=== PATIENT | female | born 1995 | race Caucasian/White ===

== ENCOUNTER 2017-01-12 03:15 | Emergency (ER) | payer BC, OTHER ==
[~2017-01-12] VITALS: Ht 175.3 cm; Wt 63.0 kg
--- NOTE | 2017-01-12 03:18 | ED.ADGEN ---
Past History Past Medical History: No Pertinent History Past Surgical History: No Surgical History Alcohol Use: None Drug Use: None Adult General Chief Complaint Chief Complaint Right hand injury HPI HPI Patient is a 22 year old and female who presents with hand and wrist injury. She slipped and fell over her flip flop landing on her right hand prior to arrival. She states it hurts to the medial aspect over the fourth and fifth medical carpal and her carpal bone. She denies any injury of her elbow. Review of Systems Review of Systems Constitutional: Denies fever or chills [] Eyes: Denies change in visual acuity, redness, or eye pain [] HENT: Denies nasal congestion or sore throat [] Respiratory: Denies cough or shortness of breath [] Cardiovascular: No additional information not addressed in HPI [] GI: Denies abdominal pain, nausea, vomiting, bloody stools or diarrhea [] : Denies dysuria or hematuria [] Musculoskeletal: Denies back pain, positive for right hand and wrist pain Integument: Denies rash or skin lesions [] Neurologic: Denies headache, focal weakness or sensory changes [] Endocrine: Denies polyuria or polydipsia [] Current Medications Current Medications Current Medications Medications (Trade) Dose Ordered Sig/Tee Start Time Stop Time Status Last Admin Dose Admin Acetaminophen/ Hydrocodone Bitart (Lortab 5/325) 1 tab 1X ONCE 01/12/17 03:30 01/12/17 03:31 UNV Lidocaine/Sodium Bicarbonate (Buffered Lidocaine 1%) 3 ml 1X ONCE 01/12/17 04:15 01/12/17 04:16 UNV Allergies Allergies Allergies Coded Allergies Type Severity Reaction Last Updated Verified No Known Drug Allergies 01/12/17 No Physical Exam Physical Exam Constitutional: Well developed, well nourished, no acute distress, non-toxic appearance. [] HENT: Normocephalic, atraumatic, bilateral external ears normal, oropharynx moist, no oral exudates, nose normal. [] Eyes: PERRLA, EOMI, conjunctiva normal, no discharge. [] Neck: Normal range of motion, no tenderness, supple, no stridor. [] Cardiovascular:Heart rate regular rhythm, no murmur [] Lungs & Thorax: Bilateral breath sounds clear to auscultation [] Abdomen: Bowel sounds normal, soft, no tenderness, no masses, no pulsatile masses. [] Skin: Warm, dry, no erythema, no rash. [] Back: No tenderness, no CVA tenderness. [] Extremities: Tender palpation with swelling over the fifth metacarpal of her right hand in addition to mild tenderness in her wrist, sensation intact to light touch over median ulnar radial nerve distributions with motor intact, no cyanosis, no clubbing, ROM intact, no edema. [] Neurologic: Alert and oriented X 3, normal motor function, normal sensory function, no focal deficits noted. [] Psychologic: Affect normal, judgement normal, mood normal. [] Current Patient Data Vital Signs Vital Signs Date Time Temp Pulse Resp B/P (MAP) Pulse Ox O2 Delivery O2 Flow Rate FiO2 01/12/17 03:33 98.1 80 20 97 Room Air EKG EKG [] Radiology/Procedures Radiology/Procedures Views of the right hand shows a fifth metacarpal fracture that is angulated and slightly displaced, no other bony abnormalities, no warm bodies or soft tissue abnormalities noted, 3 views of the right wrist did not show any bony abnormalities of the wrist, forearm bodies, soft tissue abnormalities, as interpreted by me. Course & Med Decision Making Course & Med Decision Making Pertinent Labs and Imaging studies reviewed. (See chart for details) Her fifth metacarpal fracture was reduced with hematoma block, it was placed in a ulnar gutter, patient's a follow-up with orthopedic surgery. Return precautions given for numbness tingling weakness or finger showing blue or other concerns. She is agreeable to the plan and being discharged with [facility] at this time. Post reduction films showed a slight improvement in angulation of the fracture. Splint check after the splint was applied showed normal cap refill went motion and sensation in her fingers intact. Final Impression Final Impression Fifth metacarpal fracture of the right hand Problems: Dragon Disclaimer Dragon Disclaimer This electronic medical record was generated, in whole or in part, using a voice recognition dictation system. DAVID GOMES MD Jan 12, 2017 03:18
[2017-01-12] MEDS ORDERED: HYDROcodone/APAP 5/325MG 1 TAB TABLET PO ONE (03:30)
[2017-01-12] MEDS ORDERED: antidepressant (03:32)
[2017-01-12 03:33] VITALS: BP 116/78
[2017-01-12] MEDS ORDERED: LIDOCAINE WITH 8.4% SOD BICARB 3 ML DISP.SYRIN. IJ ONE ×2 (04:04→04:15)
[2017-01-12] MEDS ORDERED: HYDR-971 PO (04:23)
--- NOTE | 2017-01-12 07:33 | RAD ---
Indication: Post reduction of the right hand. Time of exam 0423 hours. Correlation is made with prior radiograph from earlier the same day. There has been placement of a cast which overlies the mid shaft fifth metacarpal fracture. There has been improvement in the degree of angulation. Mild volar angulation of the distal fracture fragment is seen. No displacement is identified. Impression: Placement of a cast over the fifth metacarpal fracture which shows some improvement in angulation since earlier the same morning.
--- NOTE | 2017-01-12 07:34 | RAD ---
Indication: Fall and pain to the right hand and wrist. Time of exam 0354 hours. 3 views of the right wrist demonstrate the distal radius and ulna to be intact. The carpus is intact. There is a fracture through the midshaft of the fifth metacarpal. There is volar angulation of the distal fracture fragment. No displacement is seen. Impression: Angulated mid shaft fifth metacarpal fracture. No wrist fracture is identified.
--- NOTE | 2017-01-12 07:35 | RAD ---
Indication: Trauma to the right hand. Time of exam 0353 hours. 3 views of the right hand demonstrate an acute fracture through the midshaft of the fifth metacarpal. There is volar angulation of the distal fracture fragment. No displacement is seen. Remaining metacarpals are intact. The phalanges are intact. The carpus is unremarkable. Impression: Angulated mid shaft fifth metacarpal fracture.
== END 2017-01-12 04:35 | disposition home or self-care (01) ==
LOC: ER 03:15
DX: S62.306A Unspecified fracture of fifth metacarpal bone, right hand, initial encounter for closed fracture (principal); W01.0XXA Fall on same level from slipping, tripping and stumbling without subsequent striking against object, initial encounter; Y93.89 Activity, other specified; Y92.89 Other specified places as the place of occurrence of the external cause; Y99.8 Other external cause status
CPT/HCPCS: 26605; 26770; 73110; 73130; 99284-25

== ENCOUNTER → 2017-02-21 | Outpatient (CLI) | payer BC, OTHER ==
[~2017-02-21] MED LIST: HYDR-971 PO; antidepressant
--- NOTE | 2017-02-21 14:15 | RAD ---
Renal ultrasound, 02/21/2017: History: Recurrent UTIs, flank pain The right kidney measures 10.9 cm in length while the left kidney measures 11.2 cm. There is a mildly prominent extrarenal pelvis on the right. There is no evidence of hydronephrosis on either side. No renal mass is evident. Limited views of urinary bladder show no abnormality. There is a small volume of post voiding residual urine in the bladder estimated at 29 cc. IMPRESSION: No significant renal abnormality is detected.
== END | disposition home or self-care (01) ==
LOC: US 09:56
PROVIDERS: ATTEND Physician Assistant Medical
DX: N39.0 Urinary tract infection, site not specified (principal)
CPT/HCPCS: 76770

== ENCOUNTER 2017-03-28 12:47 | Emergency (ER) | payer BC, OTHER ==
[~2017-03-28] VITALS: Ht 175.3 cm; Wt 68.0 kg
[2017-03-28 12:56] VITALS: BP 114/71
[2017-03-28] MEDS ORDERED: HYDROcodone/APAP 5/325MG 1 TAB TABLET PO ONE (13:15)
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
[2017-03-28] MEDS ORDERED: NAPR275T59 PO (13:22)
--- NOTE | 2017-03-28 14:14 | RAD ---
Right hand, 3 views, 03/28/2017: History: Injury Comparison is made to a study from 01/12/2017. Callus has developed at the site of the previous fifth metacarpal fracture. The fracture line is still visible. This probably represents incomplete healing, although a refracture cannot be entirely excluded. There is mild persistent volar angulation of the distal fracture fragment. No additional fracture or dislocation is identified. IMPRESSION: Incompletely healed, mildly angulated fifth metacarpal fracture.
== END 2017-03-28 13:29 | disposition home or self-care (01) ==
LOC: ER 12:47
DX: S62.326A Displaced fracture of shaft of fifth metacarpal bone, right hand, initial encounter for closed fracture (principal); S60.221A Contusion of right hand, initial encounter; W22.01XA Walked into wall, initial encounter; Y93.89 Activity, other specified; Y99.8 Other external cause status; Y92.89 Other specified places as the place of occurrence of the external cause
CPT/HCPCS: 73130; 99284

== ENCOUNTER → 2017-08-09 | Outpatient (CLI) | payer BC, OTHER ==
[~2017-08-09] MED LIST changes: +NAPR275T59 PO
[2017-08-09 13:22] LABS: BASO # 0.1 x10^3/uL (0.0-0.2); BASO % 1 % (0-3); EOS # 0.1 x10^3/uL (0.0-0.7); EOS % 2 % (0-3); LYMPH # 1.9 x10^3/uL (1.0-4.8); LYMPH % 28 % (24-48); MEAN CORPUSCULAR HEMOGLOBIN 18 pg (25-35); MEAN CORPUSCULAR HGB CONC 30 g/dL (31-37); MEAN CORPUSCULAR VOLUME 60 fL (79-100); MONO # 0.7 x10^3/uL (0.0-1.1); MONO % 10 % (0-9); NEUT % 59 % (31-73); PLATELET COUNT 329 x10^3/uL (140-400); RED BLOOD COUNT 3.29 x10^6/uL (3.50-5.40); WHITE BLOOD COUNT 6.8 x10^3/uL (4.0-11.0)
[2017-08-09 13:29] LABS: HEMATOCRIT 19.7 % (36.0-47.0); HEMOGLOBIN 5.8 g/dL (12.0-15.5)
[2017-08-09 14:30] LABS: ANISOCYTOSIS SLIGHT; HYPOCHROMIA MARKED; MICROCYTOSIS MARKED; PLT ESTIMATE ADEQUATE (ADEQUATE)
[2017-08-09 14:31] LABS: SCHISTOCYTES OCC; STOMATOCYTES PRESENT; TARGET CELLS PRESENT
== END | disposition home or self-care (01) ==
LOC: PMG 12:32
PROVIDERS: ATTEND Physician Assistant Medical
DX: R30.0 Dysuria (principal); R10.9 Unspecified abdominal pain
CPT/HCPCS: 36415; 85025

== ENCOUNTER → 2017-08-10 | Outpatient (CLI) | payer BC, OTHER ==
[2017-08-09 15:14] VITALS: BP 105/53
[2017-08-10 11:42] LABS: BASO # 0.1 x10^3/uL (0.0-0.2); BASO % 2 % (0-3); EOS # 0.2 x10^3/uL (0.0-0.7); EOS % 4 % (0-3); HEMOGLOBIN 8.7 g/dL (12.0-15.5); LYMPH # 1.6 x10^3/uL (1.0-4.8); LYMPH % 29 % (24-48); MEAN CORPUSCULAR HEMOGLOBIN 21 pg (25-35); MEAN CORPUSCULAR HGB CONC 31 g/dL (31-37); MEAN CORPUSCULAR VOLUME 67 fL (79-100); MONO # 0.6 x10^3/uL (0.0-1.1); MONO % 11 % (0-9); NEUT % 54 % (31-73); PLATELET COUNT 322 x10^3/uL (140-400); RED BLOOD COUNT 4.17 x10^6/uL (3.50-5.40); RED CELL DISTRIBUTION WIDTH 25.7 % (11.5-14.5); WHITE BLOOD COUNT 5.6 x10^3/uL (4.0-11.0)
[2017-08-10 12:43] LABS: ANISOCYTOSIS MOD; HYPOCHROMIA MARKED; MICROCYTOSIS MOD; OVALOCYTES PRESENT; PLT ESTIMATE ADEQUATE (ADEQUATE); STOMATOCYTES PRESENT; TARGET CELLS PRESENT
== END | disposition home or self-care (01) ==
LOC: LAB 11:16
PROVIDERS: ATTEND Nurse Practitioner Family
DX: D64.9 Anemia, unspecified (principal)
CPT/HCPCS: 36415; 85025

== ENCOUNTER → 2017-08-13 | Outpatient (CLI) | payer BC, OTHER ==
[2017-08-09 15:14] VITALS: BP 105/53
--- NOTE | 2017-08-13 14:28 | RAD ---
Pelvic ultrasound, 08/13/2017: History: Pelvic pressure, irregular menses Transabdominal and transvaginal scans were obtained. The uterus measures 7.8 x 4.1 x 2.8 cm. A normal central uterine echo complex measuring 7 mm in AP dimension is seen. The uterus is otherwise unremarkable. The right ovary measures 3.7 x 2.1 x 3.5 cm while left ovary measures 3.9 x 4.3 x 2.3 cm. There are numerous subcentimeter follicular cysts in both ovaries. No adnexal mass is seen. No free fluid is evident in the pelvis. Incidental note is made of floating echogenic debris within the urinary bladder. IMPRESSION: 1. No uterine abnormality is detected. 2. Mildly prominent ovaries containing numerous follicular cysts. 3. Mild floating debris in the urinary bladder. Is there clinical evidence of urinary tract infection?
== END | disposition home or self-care (01) ==
LOC: US 12:36
PROVIDERS: ATTEND Physician Assistant Medical
DX: N83.02 Follicular cyst of left ovary (principal); N83.01 Follicular cyst of right ovary
CPT/HCPCS: 76830; 76856

== ENCOUNTER → 2017-08-20 | Outpatient (CLI) | payer BC, OTHER ==
[2017-08-09 15:14] VITALS: BP 105/53
[2017-08-20 16:19] LABS: BASO # 0.1 x10^3/uL (0.0-0.2); BASO % 1 % (0-3); EOS # 0.3 x10^3/uL (0.0-0.7); EOS % 4 % (0-3); HEMATOCRIT 29.2 % (36.0-47.0); HEMOGLOBIN 9.1 g/dL (12.0-15.5); LYMPH # 1.9 x10^3/uL (1.0-4.8); LYMPH % 26 % (24-48); MEAN CORPUSCULAR HEMOGLOBIN 21 pg (25-35); MEAN CORPUSCULAR HGB CONC 31 g/dL (31-37); MEAN CORPUSCULAR VOLUME 67 fL (79-100); MONO % 13 % (0-9); NEUT # 4.2 x10^3uL (1.8-7.7); NEUT % 56 % (31-73); PLATELET COUNT 245 x10^3/uL (140-400); RED BLOOD COUNT 4.33 x10^6/uL (3.50-5.40); RED CELL DISTRIBUTION WIDTH 28.1 % (11.5-14.5); WHITE BLOOD COUNT 7.6 x10^3/uL (4.0-11.0)
[2017-08-20 18:09] LABS: HYPOCHROMIA MARKED; MICROCYTOSIS MARKED; PLT ESTIMATE ADEQUATE (ADEQUATE)
[2017-08-20 18:10] LABS: ANISOCYTOSIS MARKED; OVALOCYTES OCC; STOMATOCYTES OCC; TARGET CELLS OCC
== END | disposition home or self-care (01) ==
LOC: PMG 15:51
PROVIDERS: ATTEND Nurse Practitioner Family
DX: D64.9 Anemia, unspecified (principal)
CPT/HCPCS: 36415; 85025

== ENCOUNTER → 2017-09-04 | Outpatient (CLI) | payer BC, OTHER ==
[2017-08-09 15:14] VITALS: BP 105/53
[~2017-09-04] MED LIST changes: +IOHEXOL 240 MG/ML 50ML VIAL. PO ONE; +IOHEXOL 300 MG/ML 75 ML VIAL. IV ONE
--- NOTE | 2017-09-04 10:28 | RAD ---
EXAM: Abdomen and pelvis CT with intravenous contrast. HISTORY: Anemia. TECHNIQUE: Computed tomographic images of the abdomen and pelvis were obtained following the administration of 75 cc Omnipaque 300 intravenous contrast. Multiplanar reformatting was performed. *One or more of the following individualized dose reduction techniques were utilized for this examination: 1. Automated exposure control. 2. Adjustment of the mA and/or kV according to patient size. 3. Use of iterative reconstruction technique. COMPARISON: None. FINDINGS: Evaluation of the lower thorax is unremarkable. No hepatic lesion is seen. The gallbladder, pancreas, adrenal glands and kidneys are unremarkable. The spleen is upper normal in size. There is no appendicitis. There is no bowel obstruction. There is no intraperitoneal free air. The uterus is anteverted. The uterus appears somewhat subseptate. There are multiple bilateral ovarian follicles. There is a small amount of pelvic free fluid. There is a tampon within the vagina. No pathologically enlarged lymph node is seen. There is no suspicious osseous lesion. IMPRESSION: No acute abdominal or pelvic finding. Electronically signed by: Audra Howard MD (09/04/2017 10:25 AM) [id number]
== END | disposition home or self-care (01) ==
LOC: CT 09:05
PROVIDERS: ATTEND Nurse Practitioner Family
DX: D64.9 Anemia, unspecified (principal)
CPT/HCPCS: 74177

== ENCOUNTER 2017-10-26 09:20 | Emergency (ER) | payer BC, OTHER ==
[~2017-10-26 09:20] MED LIST changes: -IOHEXOL 240 MG/ML 50ML VIAL. PO ONE; -IOHEXOL 300 MG/ML 75 ML VIAL. IV ONE
[2017-10-26] MEDS ORDERED: ONDANSETRON PF 4 MG/2 ML VIAL. ONE (09:51)
[2017-10-26] MEDS ORDERED: ONDANSETRON PF 4 MG/2 ML VIAL. IV ONE (10:00)
--- NOTE | 2017-10-26 10:09 | PHYS DOC ---
Past History Past Medical History: No Pertinent History Past Surgical History: Tonsillectomy, Other Smoking: Non-smoker Alcohol Use: None Drug Use: None Adult General Chief Complaint Chief Complaint: ABDOMINAL PAIN HPI HPI Patient is a 22 year old female who presents with pelvic pain. She states she's had a history of bowel pain and irregular periods and started on novoring 2 months ago. This morning around 2 AM she woke up with stabbing pubic pain. She' s also her menstrual cycle currently. She is unsure when her normal cycle is irregular. She also felt somewhat nauseated but denies any upper abdominal pain , chest pain. She states she's had to be transfused for a low hemoglobin and had to get iron infusions by her leather production worker secondary to her anemia. Your unsure why she has anemia but think is because her vaginal bleeding. She states his pain is different than her normal pelvic discomfort as a sharp stabbing and much more severe. She states she's urinated and had normal bowel movements. She denies any blood in her stools. Review of Systems Review of Systems Constitutional: Denies fever or chills [] Eyes: Denies change in visual acuity, redness, or eye pain [] HENT: Denies nasal congestion or sore throat [] Respiratory: Denies cough or shortness of breath [] Cardiovascular: No additional information not addressed in HPI [] GI: Positive for abdominal pain, nausea, vomiting,Denies bloody stools or diarrhea [] : Denies dysuria or hematuria [] Musculoskeletal: Denies back pain or joint pain [] Integument: Denies rash or skin lesions [] Neurologic: Denies headache, focal weakness or sensory changes [] Endocrine: Denies polyuria or polydipsia [] All other systems were reviewed and found to be within normal limits, except as documented in this note. Current Medications Current Medications Current Medications Medications (Trade) Dose Ordered Sig/Tee Start Time Stop Time Status Last Admin Dose Admin Fentanyl Citrate (Fentanyl 2ml Vial) 25 mcg PRN Q15MIN PRN 10/26/17 10:00 10/27/17 09:59 10/26/17 09:58 25 MCG Ondansetron HCl (Zofran) 4 mg 1X ONCE 10/26/17 10:00 10/26/17 10:01 DC 10/26/17 09:55 4 MG Allergies Allergies Allergies Coded Allergies Type Severity Reaction Last Updated Verified No Known Drug Allergies 01/12/17 No Physical Exam Physical Exam Constitutional: Well developed, well nourished, no acute distress, non-toxic appearance. [] HENT: Normocephalic, atraumatic, bilateral external ears normal, oropharynx moist, no oral exudates, nose normal. [] Eyes: PERRLA, EOMI, conjunctiva normal, no discharge. [] Neck: Normal range of motion, no tenderness, supple, no stridor. [] Cardiovascular:Heart rate regular rhythm, no murmur [] Lungs & Thorax: Bilateral breath sounds clear to auscultation [] Abdomen/pelvic exam: Bowel sounds normal, soft, nontender in the epigastric area , right or left lower quadrants, no masses, no pulsatile masses. Tender to palpation in the suprapubic area, pelvic exam: [employer] present, clot/tissue noted in the vaginal vault that was removed during pelvic exam. No active bleeding noted, no cervical motion tenderness or adnexal masses or tenderness appreciated, Nav ringing present. Skin: Warm, dry, no erythema, no rash. [] Back: No tenderness, no CVA tenderness. [] Extremities: No tenderness, no cyanosis, no clubbing, ROM intact, no edema. [] Neurologic: Alert and oriented X 3, normal motor function, normal sensory function, no focal deficits noted. [] Psychologic: Affect normal, judgement normal, mood normal. [] Current Patient Data Lab Results Laboratory Tests Test 10/26/17 08:47 POC Urine HCG, Qualitative hcg negative (Negative) EKG EKG [] Radiology/Procedures Radiology/Procedures [address] [address] IMAGING REPORT Signed PATIENT: RAISA ALBARRAN ACCOUNT: [id number] : 1995 LOCATION: ER AGE: 22 SEX: F EXAM STATUS: REG ER ORD. PHYSICIAN: DAVID GOMES MD REASON: pelvic pain, AUB x>1 wk PROCEDURE: US PELVIS W/TV Indication: Pelvic pain and abnormal uterine bleeding for one week. Technique: Grayscale, color Doppler and spectral waveform images of the pelvis obtained. Comparison: None Findings: The uterus measures 8.4 x 4.3 x 5.6 cm (longitudinal, AP, transverse). The endometrial thickness measures 7 mm and is within normal limits. 2 endometrial stripes noted suggesting a septate uterus. The right ovary measures 2.8 x 1.9 x 2.6 cm and demonstrate evidence of blood flow. The left ovary measures 3.2 x 2.1 x 2.7 cm and demonstrates evidence of blood flow. Small amount of free pelvic fluid is seen in the cul-de-sac. Cervix within normal limits. Impression: 1. Suggestion of septate uterus without fibroids. Endometrial stripe within normal limits. 2. Bilateral ovaries demonstrate evidence of blood flow. DICTATED AND SIGNED BY: ARPAN CARRASCO DO DATE: 10/26/17 1216 CC: DAVID GOMES MD; JAYDEN KEITH ~ [] Impressions: Pelvic pain Hypokalemia Bacterial vaginosis Course & Med Decision Making Course & Med Decision Making Pertinent Labs and Imaging studies reviewed. (See chart for details) RUN DATE: 10/26/17 [facility] *LIVE* PAGE 1 RUN TIME: 1137 Specimen Inquiry PATIENT: RAISA ALBARRAN ACCT: [id number] LOC: ER U : [id number] AGE/SX: 22/F ROOM: REG : 10/26/[address]: DAVID GOMES MD : 1995 BED: DIS : STATUS: REG ER TLOC: SPEC #: [id number] KERRIE: 10/26/17 STATUS: COMP REQ #: [id number] RECD: 10/26/[address]: DAVID GOMES MD SOURCE: VAGINAL ENTR: 10/26/17-[address]: JAYDEN KEITH SPDES: ORDERED: WET PREP COMMENTS: Has specimen been collected/obtained? Y Procedure Result WET PREP Final YEAST NONE SEEN TRICHOMONAS NONE SEEN CLUE CELLS NONE SEEN ALTERED DARRIUS ALTERED DARRIUS PRESENT SUGGESTIVE OF BACTERIAL VAGINOSIS WBCS FEW RBCS MANY SQUAMOUS EPS OCCASIONAL END OF REPORT Ultrasound did not show any acute abnormalities. Tissue/clot was sent for pathology. UCG was negative. Patient pain is controlled with 1 dose of fentanyl. She's been watched for 3 hours and has not needed any additional repeat pain meds. She was given 40 mEq potassium 1. She is being discharged home to follow-up with [facility], she is to continue potassium chloride the next 3 days and have her labs repeated. She is also being discharged with Flagyl 500 mg twice a day for 7 days for BV. Return precautions given for severe pain, fevers, uncontrolled nausea vomiting, or other concerns. Dragon Disclaimer Dragon Disclaimer This electronic medical record was generated, in whole or in part, using a voice recognition dictation system. Departure Departure: Impression: Primary Impression: Abdominal pain in female Disposition: 01 HOME, SELF-CARE Condition: STABLE Referrals: JAYDEN KEITH (PCP) Patient Instructions: Bacterial Vaginosis, Pelvic Pain, Female Additional Instructions: Your labs showed that your potassium was slightly low at your given potassium pill in the emergency department and being discharged home with 2 additional days potassium. You will need to have your labs repeated in the next 4-5 days to have your potassium rechecked. The ultrasound did not show any acute abnormalities. You did pass some tissue/a blood clot out of your vagina that was sent to lab for pathology. At this time your pain is controlled and your being discharged home. You will need follow-up with your [facility] physician. Please call her office schedule follow-up appointment for the next few days. Return back to ER if you have severe pain, uncontrolled vaginal bleeding refill lightheaded dizzy, or if you develop high fevers, or you have any other concerns. You will also need take Flagyl which is an antibiotic twice a day for the next 7 days for bacterial vaginosis. We did perform routine swabs are sent down for gonorrhea and chlamydia. These will be back for several days. He OB/ [facility] can follow-up with these. Scripts Metronidazole (FLAGYL) 500 Mg Tablet 1 TAB PO BID, #14 TAB Prov: DAVID GOMES MD 10/26/17 Potassium Chloride (POTASSIUM CHLORIDE) 20 Meq Tablet.er 20 MEQ PO DAILY for 3 Days, #3 TAB Prov: DAVID GOMES MD 10/26/17 DAVID GOMES MD Oct 26, 2017 10:08
[2017-10-26 10:26] LABS: BASO # 0.1 x10^3/uL (0.0-0.2); BASO % 1 % (0-3); EOS # 0.4 x10^3/uL (0.0-0.7); EOS % 3 % (0-3); HEMATOCRIT 41.9 % (36.0-47.0); HEMOGLOBIN 13.8 g/dL (12.0-15.5); LYMPH # 1.9 x10^3/uL (1.0-4.8); LYMPH % 15 % (24-48); MEAN CORPUSCULAR HEMOGLOBIN 27 pg (25-35); MEAN CORPUSCULAR HGB CONC 33 g/dL (31-37); MEAN CORPUSCULAR VOLUME 81 fL (79-100); MONO # 0.6 x10^3/uL (0.0-1.1); MONO % 5 % (0-9); NEUT # 9.9 x10^3uL (1.8-7.7); NEUT % 77 % (31-73); PLATELET COUNT 191 x10^3/uL (140-400); RED BLOOD COUNT 5.18 x10^6/uL (3.50-5.40); RED CELL DISTRIBUTION WIDTH 28.2 % (11.5-14.5); WHITE BLOOD COUNT 12.8 x10^3/uL (4.0-11.0)
[2017-10-26 10:33] LABS: ALBUMIN 3.4 g/dL (3.4-5.0); ALBUMIN/GLOBULIN RATIO 0.8 (1.0-1.7); CALCIUM 8.6 mg/dL (8.5-10.1); CREATININE 0.7 mg/dL (0.6-1.0); GFR 104.6; TOTAL BILIRUBIN 0.2 mg/dL (0.2-1.0); TOTAL PROTEIN 7.5 g/dL (6.4-8.2)
[2017-10-26 10:37] LABS: POTASSIUM 2.8 mmol/L (3.5-5.1)
[2017-10-26 10:41] LABS: BACTERIA,URINE FEW /HPF (0-FEW); BILIRUBIN,URINE NEG (NEG); CLARITY,URINE HAZY; COLOR,URINE YELLOW; GLUCOSE,URINE NEG (NEG); NITRITE,URINE NEG (NEG); SQUAMOUS EPITHELIAL CELL,UR FEW /LPF; UROBILINOGEN,URINE 0.2 mg/dL (0.2 mg/dL)
[2017-10-26] MEDS ORDERED: POTASSIUM CHLORIDE 20 MEQ TABLET.ER. PO ONE (12:00)
[2017-10-26 12:05] VITALS: BP 101/66
[2017-10-26 12:08] LABS: PLT ESTIMATE ADEQUATE (ADEQUATE)
[2017-10-26 12:09] LABS: ANISOCYTOSIS MOD; HYPOCHROMIA SLIGHT; MICROCYTOSIS SLIGHT; OVALOCYTES OCC; TEAR DROP CELLS OCC
[2017-10-26 12:10] LABS: TOXIC GRANULATION SLIGHT
--- NOTE | 2017-10-26 12:22 | RAD ---
Indication: Pelvic pain and abnormal uterine bleeding for one week. Technique: Grayscale, color Doppler and spectral waveform images of the pelvis obtained. Comparison: None Findings: The uterus measures 8.4 x 4.3 x 5.6 cm (longitudinal, AP, transverse). The endometrial thickness measures 7 mm and is within normal limits. 2 endometrial stripes noted suggesting a septate uterus. The right ovary measures 2.8 x 1.9 x 2.6 cm and demonstrate evidence of blood flow. The left ovary measures 3.2 x 2.1 x 2.7 cm and demonstrates evidence of blood flow. Small amount of free pelvic fluid is seen in the cul-de-sac. Cervix within normal limits. Impression: 1. Suggestion of septate uterus without fibroids. Endometrial stripe within normal limits. 2. Bilateral ovaries demonstrate evidence of blood flow.
[2017-10-26] MEDS ORDERED: POTA20TA82 PO (12:31)
[2017-10-26] MEDS ORDERED: METR500T PO (12:46)
[2017-10-28 15:07] LABS: CHLAMYDIA PROBE Negative (Negative)
--- NOTE | 2017-10-30 14:46 | PATHOLOGY ---
PATHOLOGY REPORT * * * * * * * * FINAL DIAGNOSIS: Vaginal tissue: - Decidual cast showing focal hemorrhage, necrosis, and acute inflammation. COMMENT: No chorionic villi are identified. (JPM:mgr; 10/30/2017) REPORT ELECTRONICALLY SIGNED BY: Francois Yañez M.D. DATE/TIME: 10/30/2017 14:45 * * * * * * * * GROSS PATHOLOGY: The specimen is received in formalin labeled "Raisa Albarran tissue/blood clot vagina". Received is a segment of dusky murillo-alejandre to light alejandre soft tissue measuring 7.1 x 5.8 x 2.1 cm in greatest dimensions. or embryonic tissue is not grossly identified. The specimen is submitted representatively in cassettes A1 through A4. (CAA; 10/29/2017) INITIAL CPT CODE(S): 20664 Professional services performed [place] [address] Technical services performed by [facility] at [address] [place] [address], [address], [place] [address] Sheridan fax: SPECIMEN(S) RECEIVED: A.Tissue, blood clot in vagina CLINICAL HISTORY: Anemia, abdominal pain, negative urine HCG, nuvaring in place PATIENT: RAISA ALBARRAN /AGE: 5 1995 (Age: 22) PATIENT #: [id number] CASE #: SPECIMEN COLLECTION DATE: 10/26/2017 SPECIMEN RECEIVED DATE: 10/28/2017 [facility] - [address] [place] [address] - PHONE: [phone] * * * END OF REPORT * * *
== END 2017-10-26 12:40 | disposition home or self-care (01) ==
LOC: ER 09:20
DX: R10.2 Pelvic and perineal pain (principal); N76.0 Acute vaginitis; E87.6 Hypokalemia; B96.89 Other specified bacterial agents as the cause of diseases classified elsewhere
CPT/HCPCS: 36415; 76830; 76856; 80053; 81001; 81025; 83690; 83735; 85025; 87491; 87591; 96374; 96375; 99285; J2405; J3010; Q0111

== ENCOUNTER 2018-09-09 13:05 | Emergency (ER) | payer BC, OTHER ==
[~2018-09-09] VITALS: Ht 175.3 cm; Wt 65.8 kg
[~2018-09-09 13:05] MED LIST changes: +HYDR-3165 PO; -HYDR-971 PO; +IBUP600T16 PO; +METR500T PO; +POTA20TA82 PO
[2018-09-09 13:25] VITALS: BP 139/92
[2018-09-09 13:45] LABS: BILIRUBIN,URINE NEG (NEG); CLARITY,URINE HAZY; COLOR,URINE YELLOW; GLUCOSE,URINE NEG (NEG); NITRITE,URINE NEG (NEG); UROBILINOGEN,URINE 0.2 mg/dL (0.2 mg/dL)
[2018-09-09] MEDS: KETOROLAC 60 MG/2 ML VIAL. IM ONE (13:51)
[2018-09-09] MEDS ORDERED: NAPR-683 PO (13:55)
--- NOTE | 2018-09-09 13:57 | PHYS DOC ---
Past History Past Medical History: Anxiety, Depression, Other Past Surgical History: No Surgical History Smoking: Non-smoker Alcohol Use: None Drug Use: None Adult General Chief Complaint Chief Complaint: ABDOMINAL PAIN HPI HPI Patient is a 23 year old female who presents with complaining of lower abdominal and pelvic pain since last night. Patient states she has had gradual onset of lower abdominal aching and cramping pain since last night that getting worse today. Patient states she had 1 episodes of nausea today. Patient states she usually gets mild pain with her menstruation but this time her pain was worse than her usual. Patient currently is on contraception. Is nausea and vomiting, urinary symptoms, fever and chills. Review of Systems Review of Systems Constitutional: Denies fever or chills [] Eyes: Denies change in visual acuity, redness, or eye pain [] HENT: Denies nasal congestion or sore throat [] Respiratory: Denies cough or shortness of breath [] Cardiovascular: No additional information not addressed in HPI [] GI: Reports abdominal pain, nausea, denies vomiting, bloody stools or diarrhea [ ] : Denies dysuria or hematuria [] Musculoskeletal: Denies back pain or joint pain [] Integument: Denies rash or skin lesions [] Neurologic: Denies headache, focal weakness or sensory changes [] Endocrine: Denies polyuria or polydipsia [] All other systems were reviewed and found to be within normal limits, except as documented in this note. Current Medications Current Medications Current Medications Medications (Trade) Dose Ordered Sig/Tee Start Time Stop Time Status Last Admin Dose Admin Ketorolac Tromethamine (Toradol Im) 60 mg 1X ONCE 09/09/18 14:00 09/09/18 14:01 09/09/18 13:51 60 MG Allergies Allergies Allergies Coded Allergies Type Severity Reaction Last Updated Verified No Known Drug Allergies 01/12/17 No Physical Exam Physical Exam Constitutional: Well developed, well nourished, mild distress, non-toxic appearance. [] HENT: Normocephalic, atraumatic. Eyes: PERRLA, EOMI, conjunctiva normal, no discharge. [] Neck: Normal range of motion, no tenderness, supple, no stridor. [] Cardiovascular:Heart rate regular rhythm, no murmur [] Lungs & Thorax: Bilateral breath sounds clear to auscultation [] Abdomen: Bowel sounds normal, soft, no tenderness, no masses, no pulsatile masses. [] Skin: Warm, dry, no erythema, no rash. [] Back: No tenderness, no CVA tenderness. [] Extremities: No tenderness, no cyanosis, no clubbing, ROM intact, no edema. [] Neurologic: Alert and oriented X 3, normal motor function, normal sensory function, no focal deficits noted. [] Psychologic: Affect normal, judgement normal, mood normal. [] Current Patient Data Vital Signs Vital Signs Date Time Temp Pulse Resp B/P (MAP) Pulse Ox O2 Delivery O2 Flow Rate FiO2 09/09/18 13:25 97.7 76 16 100 Room Air Lab Results Laboratory Tests Test 09/09/18 13:20 Urine Collection Type Unknown Urine Color Yellow Urine Clarity Hazy Urine pH 5.5 Urine Specific [place] 1.015 Urine Protein Neg (NEG-TRACE) Urine Glucose (UA) Neg mg/dL (NEG) Urine Ketones (Stick) Neg mg/dL (NEG) Urine Blood Mod (NEG) Urine Nitrite Neg (NEG) Urine Bilirubin Neg (NEG) Urine Urobilinogen Dipstick 0.2 mg/dL (0.2 mg/dL) Urine Leukocyte Esterase Trace (NEG) EKG EKG [] Radiology/Procedures Radiology/Procedures [] Course & Med Decision Making Course & Med Decision Making Evaluation of patient in ER showed 23-year-old female patient with complaining of lower abdominal pain before starting her menstruation. Patient had unremarkable physical exam and vital signs and treated with Toradol and felt better. Patient was advised to follow up with her [facility] for more evaluation for episodes of dysmenorrhea. Dragon Disclaimer Dragon Disclaimer This electronic medical record was generated, in whole or in part, using a voice recognition dictation system. Departure Departure: Impression: Primary Impression: Dysmenorrhea Disposition: 01 HOME, SELF-CARE (@1355) Condition: IMPROVED Referrals: JAYDEN KEITH (PCP) Patient Instructions: Dysmenorrhea Additional Instructions: Drink plenty of liquids Follow-up with your primary care physician in 3-5 days Return to ER if not getting better Scripts Naproxen (NAPROSYN) 500 Mg Tablet 500 MG PO BID for pain, #20 TAB Prov: EZEQUIEL BLAND MD 09/09/18 EZEQUIEL BLAND MD Sep 09, 2018 13:57
== END 2018-09-09 14:06 | disposition home or self-care (01) ==
LOC: ER 13:05
DX: N94.6 Dysmenorrhea, unspecified (principal); F41.9 Anxiety disorder, unspecified; F32.9 Major depressive disorder, single episode, unspecified
CPT/HCPCS: 81003; 96372; 99283; J1885

== ENCOUNTER → 2018-10-02 | Outpatient (CLI) | payer BC, OTHER ==
[2018-09-09 13:25] VITALS: BP 139/92
[~2018-10-02] MED LIST changes: +NAPR-683 PO
--- NOTE | 2018-10-02 12:45 | RAD ---
Indication: Large blood clot during bowel.. Pelvic pain. TECHNIQUE: Grayscale, color Doppler and spectral waveform images of the pelvis COMPARISON: 10/26/2017 FINDINGS: The uterus is anteverted and measures 9.2 x 3.0 x 5.0 cm (longitudinal, AP, transverse). Endometrial stripe measures 6 mm in thickness and is within normal limits. Trace amount of fluid is seen in the endocervical canal. Left ovary measures 2.1 x 3.6 x 3.5 cm and shows blood flow with multiple follicles. The right ovary measures 2.0 x 3.1 x 3.0 cm and shows blood flow with multiple follicles. Trace amount of free pelvic fluid. IMPRESSION: No acute findings. Electronically signed by: Jairo Mcgee DO (10/02/2018 12:43 PM) [id number]
== END | disposition home or self-care (01) ==
LOC: US 09:07
PROVIDERS: ATTEND Physician Assistant Medical
DX: R10.2 Pelvic and perineal pain (principal); K92.1 Melena
CPT/HCPCS: 76830; 76856

== ENCOUNTER → 2019-01-08 | Outpatient (CLI) | payer BC, OTHER ==
[2019-01-08 12:17] LABS: BASO # 0.1 x10^3/uL (0.0-0.2); BASO % 1 % (0-3); EOS # 0.3 x10^3/uL (0.0-0.7); EOS % 5 % (0-3); HEMATOCRIT 43.7 % (36.0-47.0); HEMOGLOBIN 14.9 g/dL (12.0-15.5); LYMPH # 1.9 x10^3/uL (1.0-4.8); LYMPH % 27 % (24-48); MEAN CORPUSCULAR HEMOGLOBIN 31 pg (25-35); MEAN CORPUSCULAR HGB CONC 34 g/dL (31-37); MEAN CORPUSCULAR VOLUME 89 fL (79-100); MONO # 0.6 x10^3/uL (0.0-1.1); MONO % 8 % (0-9); NEUT # 4.3 x10^3uL (1.8-7.7); NEUT % 59 % (31-73); PLATELET COUNT 223 x10^3/uL (140-400); RED BLOOD COUNT 4.89 x10^6/uL (3.50-5.40); RED CELL DISTRIBUTION WIDTH 13.1 % (11.5-14.5); WHITE BLOOD COUNT 7.2 x10^3/uL (4.0-11.0)
[2019-01-08 14:04] LABS: FREE T4 1.05 ng/dL (0.76-1.46); THYROID STIM HORMONE (TSH) 0.887 uIU/mL (0.358-3.740)
== END | disposition home or self-care (01) ==
LOC: LAB 11:29
PROVIDERS: ATTEND Registered Nurse
DX: N93.9 Abnormal uterine and vaginal bleeding, unspecified (principal); Z79.3 Long term (current) use of hormonal contraceptives
CPT/HCPCS: 36415; 82306; 84439; 84443; 85025

== ENCOUNTER 2019-04-12 00:22 | Emergency (ER) | payer BC, OTHER ==
[~2019-04-12] VITALS: Ht 175.3 cm; Wt 65.3 kg
[2019-04-12 00:30] VITALS: BP 130/67
--- NOTE | 2019-04-12 00:47 | PHYS DOC ---
Past History Past Medical History: Anxiety, Depression, Other Past Surgical History: No Surgical History Smoking: Non-smoker Alcohol Use: Occasionally Drug Use: None Adult General Chief Complaint Chief Complaint: HAND PROBLEM HPI HPI Patient is a 44-year-old female presents with right hand pain. Proximally an hour prior to arrival she tripped and fell down several steps after having a shot at a local bar. She has previously broken her right small finger metacarpal with a previous "bend" in the bone. She reports increased pain with movement. Pain is moderate in intensity. No radiation. No numbness or tingling. She has taken no medicine for pain. Pain is sharp in nature.[] Review of Systems Review of Systems Constitutional: Denies fever or chills [] Eyes: Denies change in visual acuity, redness, or eye pain [] HENT: Denies nasal congestion or sore throat [] Respiratory: Denies cough or shortness of breath [] Cardiovascular: No chest pain or palpitations[] GI: Denies abdominal pain, nausea, vomiting, bloody stools or diarrhea [] : Denies dysuria or hematuria [] Musculoskeletal: Denies back pain, see history of present illness[] Integument: Denies rash or skin lesions [] Neurologic: Denies headache, focal weakness or sensory changes [] Endocrine: Denies polyuria or polydipsia [] All other systems were reviewed and found to be within normal limits, except as documented in this note. Allergies Allergies Allergies Coded Allergies Type Severity Reaction Last Updated Verified No Known Drug Allergies 04/12/19 No Physical Exam Physical Exam Constitutional: Well developed, well nourished, no acute distress, non-toxic appearance. [] HENT: Normocephalic, atraumatic, bilateral external ears normal, oropharynx moist, no oral exudates, nose normal. [] Eyes: PERRLA, EOMI, conjunctiva normal, no discharge. [] Neck: Normal range of motion, no tenderness, supple, no stridor. [] Cardiovascular:Heart rate regular rhythm, no murmur [] Lungs & Thorax: Bilateral breath sounds clear to auscultation [] Abdomen: Not examined. [] Skin: Warm, dry, no erythema, no rash. [] Back: No tenderness, no CVA tenderness. [] Extremities: Right hand: There is bruising around the distal fourth and fifth finger metacarpal region. There is increased pain with axial loading of the fifth metacarpal. No rotational deformity. No angular deformity. Capillary refills less than 2 seconds in all fingers. 2 point discrimination is less than 5 mm in all fingers. The other 3 extremities show: No tenderness, no cyanosis, no clubbing, ROM intact, no edema. [] Neurologic: Alert and oriented X 3, normal motor function, normal sensory function, no focal deficits noted. [] Psychologic: Affect normal, judgement normal, mood normal. [] EKG EKG [] Radiology/Procedures Radiology/Procedures Right hand x-ray shows no acute fracture. There is evidence of a previous fifth metacarpal fracture. No acute dislocation either.[] Course & Med Decision Making Course & Med Decision Making Pertinent Labs and Imaging studies reviewed. (See chart for details) ED course: Patient arrived, was placed in bed, and tolerated exam well. She was transported to and from radiology with any complications. After the return of the imaging findings, these were discussed with the patient voiced understanding. Mick wrap was applied. Ice was also administered while in the emergency department. She was able to tolerate oral ibuprofen with good effect. Patient was discharged in improved condition with all questions answered. Medical decision making: There is no evidence of an acute fracture or dislocation. No evidence of neurologic, vascular, ligamentous, nor tendinous injury.[] Dragon Disclaimer Dragon Disclaimer This electronic medical record was generated, in whole or in part, using a voice recognition dictation system. Departure Departure: Impression: Primary Impression: Contusion of right hand, initial encounter Disposition: 01 HOME, SELF-CARE Condition: IMPROVED Referrals: JAYDEN KEITH (PCP) Follow-up in 2-3 days Patient Instructions: Hand Injuries Additional Instructions: Follow-up with your regular doctor in 2-3 days. Rest your hand, ice it for 15 minutes at a time, at least 4 times a day for the next 3 days. After 3 days switch to heat, 15 minutes at a time, at least 4 times a day. Return to the ER if worsening pain, weakness, numbness, or any other concerns. Scripts Meloxicam (MELOXICAM) 7.5 Mg Tablet 7.5 MG PO DAILY for PAIN, #20 TAB Prov: REMINGTON HERERRA DO 04/12/19 REMINGTON HERRERA DO Apr 12, 2019 00:47
[2019-04-12] MEDS ORDERED: IBUPROFEN 600 MG TABLET. PO ONE (01:00)
[2019-04-12] MEDS ORDERED: MELO7.5T29 PO (01:00)
--- NOTE | 2019-04-12 01:54 | RAD ---
Right hand 3 views. HISTORY: Right hand pain and swelling after a fall 3 views were taken of the right hand. There is deformity of the fifth metatarsal carpal but an acute fracture is not identified, an old fractures likely. 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 An acute fracture is not identified in the right hand. IMPRESSION: 1. Bowing of the fifth metacarpal with an old healed fracture. 2. No acute fracture noted. Electronically signed by: Ronald Shea MD (04/12/2019 1:51 AM) [facility]
== END 2019-04-12 01:09 | disposition home or self-care (01) ==
LOC: ER 00:22
DX: S60.221A Contusion of right hand, initial encounter (principal); W01.0XXA Fall on same level from slipping, tripping and stumbling without subsequent striking against object, initial encounter; Y93.89 Activity, other specified; Y92.89 Other specified places as the place of occurrence of the external cause; Y99.8 Other external cause status
CPT/HCPCS: 73130; 99284

== ENCOUNTER → 2020-07-22 | Outpatient (CLI) | payer BC, OTHER ==
[~2020-07-22] MED LIST changes: +MELO7.5T29 PO; +POTA20TA4 PO; -POTA20TA82 PO
--- NOTE | 2020-07-22 16:22 | RAD ---
Right hand 3 views: Reason for examination: Right hand pain. Comparison is made to previous study dated 04/12/2019. No acute fracture or dislocation is seen. Again noted however is bowing deformity at the fifth metaca rpal bone consistent with old trauma. Joint spaces are maintained. Bone density is normal. No abnorma l periosteal reaction is seen. IMPRESSION: No acute bony abnormality evident at the right hand. Electronically signed by: Jazlyn Raymond MD (07/22/2020 4:20 PM) [facility]
== END ==
LOC: RAD 15:13
PROVIDERS: ATTEND Physician Assistant Medical
DX: M20.091 Other deformity of right finger(s) (principal); M79.641 Pain in right hand
CPT/HCPCS: 73130